=== PATIENT | female | born 1975 | race Caucasian/White ===

== ENCOUNTER 2020-01-11 16:20 | Emergency (ER) | payer OTHER ==
[~2020-01-11] VITALS: Ht 157.5 cm; Wt 90.3 kg
[2020-01-11 16:34] VITALS: BP 181/129; Ht 157.5 cm; Wt 90.3 kg
== END 2020-01-11 17:33 | disposition home or self-care (01) ==
LOC: ED 16:20
DX: S13.4XXA Sprain of ligaments of cervical spine, initial encounter (principal); S93.491A Sprain of other ligament of right ankle, initial encounter; I10 Essential (primary) hypertension; E11.9 Type 2 diabetes mellitus without complications; V49.49XA Driver injured in collision with other motor vehicles in traffic accident, initial encounter; Y93.89 Activity, other specified; Y92.413 State road as the place of occurrence of the external cause; Y99.8 Other external cause status

== ENCOUNTER 2020-02-20 14:51 | Emergency (ER) | payer OTHER, SELFPAY ==
[~2020-02-20] VITALS: Ht 157.5 cm; Wt 89.8 kg
[2020-02-20 15:30] VITALS: Ht 157.5 cm; Wt 89.8 kg
[2020-02-20 16:00] LABS: CALCIUM 8.9 mg/dL (8.5-10.1); CARBON DIOXIDE 24.6 mmol/L (21-32); CHLORIDE SERUM 105 mmol/L (98-107); CREATININE SERUM 0.6 mg/dL (0.6-1.0); GFR1 > 60 mL/min; GLUCOSE SERUM 96 mg/dL (74-106); POTASSIUM SERUM 3.9 mmol/L (3.5-5.1); SODIUM SERUM 139 mmol/L (136-145)
[2020-02-20 16:04] LABS: BASOPHIL % 0.5 % (0-2); PLATELET COUNT 268 x10^3mcL (130-400)
[2020-02-20 16:06] LABS: RED CELL DISTRIBUTION WIDTH 15.6 % (11.5-14.5)
[2020-02-20 17:36] VITALS: BP 135/78
== END 2020-02-20 17:36 | disposition home or self-care (01) ==
LOC: ED 14:51
PROVIDERS: Emergency Medicine
DX: J02.9 Acute pharyngitis, unspecified (principal)
CPT/HCPCS: 36415; 86308; Q0092